=== PATIENT | female | born 1940 | race Caucasian/White ===

== ENCOUNTER 2019-12-16 22:13 | Emergency (ER) | payer MEDICARE, SELFPAY ==
[2019-12-16 22:15] VITALS: BP 209/83; PULSE 100; RESP 11; TEMP 37.6; O2SAT 97; BMI 28.5
--- NOTE | 2019-12-16 22:38 | EKG12_ITS ---
Test Reason : DYSRHYTHMIA Blood Pressure : / mmHG Vent. Rate : 093 BPM Atrial Rate : 093 BPM P-R Int : 152 ms QRS Dur : 102 ms QT Int : 396 ms P-R-T Axes : 074 043 029 degrees QTc Int : 492 ms Normal sinus rhythm Possible Inferior infarct , age undetermined Abnormal ECG Confirmed by LISETH QUINTERO, MATEO ([id number]), material expeditor ABIODUN HANSON ([id number]) on 12/20/2019 12:58:03 PM Referred By: MR Confirmed By:MATEO CHILDERS MD
--- NOTE | 2019-12-16 22:40 | ED.VIS.GEN ---
History of Present Illness Chief Complaint: Weakness Narrative: Patient presenting for evaluation secondary to generalized weakness. Patient reports that she felt well today, was seated in her chair and when she stood up earlier this evening she felt lightheaded and fell. She denies that she hit her head. She denied this that she had syncope or loss consciousness. She denies that there was any sort of preceding chest pain or palpitations. Patient states that she was weak enough that she was not able to get up off of the floor, and spent most of the evening crawling or scooting across the floor. Patient states that she had some mild pain in her bilateral hips. She denies any lateralizing weakness. She denies any recent infectious signs or symptoms such as fever cough nausea vomiting diarrhea dysuria hematuria abdominal pain or skin rashes. Patient does live alone. Review of systems otherwise negative. Past Medical History - Allergies and Home Meds Allergies/Adverse Reactions: Allergies No Known Allergies Allergy (Verified 12/16/19 22:14) Prior records reviewed: Yes Past Medical History: - - A. fib, hypertension Surgical History: - Lives: Alone Smoking Status: Never smoker Alcohol: None Drugs: None Review of Systems All systems negative except as indicated General: Reports: - - Generalized weakness Eyes: Denies: Visual changes - bilaterally, Diplopia ENT: Denies: Rhinorrhea, Sore throat Cardiovascular: Denies: Chest pain, Palpitations Respiratory: Denies: Dyspnea, Cough, Dyspnea on exertion Gastrointestinal: Denies: Abdominal pain, Nausea, Vomiting, Diarrhea, Melena, Hematochezia Genitourinary: Denies: Dysuria, Hematuria, Frequency Musculoskeletal: Denies: Back pain, Extremity Pain Skin: Denies: Rash, Wounds Neurological: Denies: Headache, Weakness, Numbness Physical Exam Vital Signs/Narrative: Vital Signs Temp Pulse Resp BP Pulse Ox 12/16/19 22:15 99.6 F H 100 11 L 209/83 H 97 Inital Vital Signs reviewed: Yes General: Well nourished, Well developed, No Acute Distress Head: Normocephalic, Atraumatic Eyes: Perrl, EOMI ENT: Moist mucous membranes, No rhinorrhea Neck: Supple, Nontender, - - Neck is nontender with no step-offs normal range of motion Cardiovascular: Regular rate, Regular rhythm, No murmurs, - - 2+ radial pulses. Occasional extrasystoles are noted. Respiratory: No distress, CTA bilaterally, Chest nontender Abdomen: Soft, Nontender, Nondistended, Normal bowel sounds Back: Nontender, Normal Inspection Extremities: Nontender, No edema, - - Pelvis is stable. Normal active and passive range of motion of the upper and lower extremities with no reproducible pain on palpation or movement. Skin: Normal color, No rash Neurological: Alert, Oriented x3, Cranial nerves II-XII grossly intact, Normal Strength, Normal Sensation Psychological: Normal affect, Normal Mood Diagnostic/Tx/Re-eval Clinical Impression(s) from Imaging Studies Chest X-Ray 12/16/19 22:58 IMPRESSION: No acute cardiopulmonary disease. Electronically Signed: Reinaldo Sheppard MD at 23:17 EDT , Service support , Laboratory Data 12/16/19 12/16/19 12/16/19 22:00 22:54 22:54 WBC 10.1 RBC 5.27 Hgb 14.8 Hct 45.4 MCV 86.1 MCH 28.1 MCHC 32.6 RDW Std Deviation 43.5 RDW Coeff of Desmond 13.7 Plt Count 209 MPV 10.5 Immature Gran % (Auto) 0.400 Neut % (Auto) 75.7 H Lymph % (Auto) 13.7 L [place] % (Auto) 8.9 Eos % (Auto) 0.6 Baso % (Auto) 0.7 Absolute Neuts (auto) 7.6 Absolute Lymphs (auto) 1.38 Nucleated RBC % 0 Sodium 141 Potassium 3.6 Chloride 104 Carbon Dioxide 30.0 Anion Gap 7 BUN 16 Creatinine 0.80 Estim Creat Clear Calc 54.26 Est GFR (MDRD) Af Amer 89 Est GFR (MDRD) Non-Af 74 BUN/Creatinine Ratio 20.0 Glucose 144 H Calcium 9.2 Troponin I < 0.015 Urine Color Yellow Urine Clarity Clear Urine pH 8.0 Ur Specific [place] 1.015 Urine Protein 100 H Urine Glucose (UA) Normal Urine Ketones Negative Urine Occult Blood 25 H Urine Nitrite Negative Urine Bilirubin Negative Urine Urobilinogen Normal Ur Leukocyte Esterase Negative Urine RBC 0-5 SEEN Urine WBC 0 SEEN Ur Squamous Epith Cells 0 SEEN Urine Bacteria 0 SEEN Urine Mucus 0 SEEN - EKG Initial EKG Interpretation: - - Sinus rhythm [address] segments normal T waves. Inferior Q waves are noted in lead III, no evidence of acute ischemia or arrhythmia. - Medical Decision Making Patient presented secondary to generalized weakness. She was noted to be hypertensive, states that she does not take her antihypertensive medications and really only has been taking her thyroid medicines. Work-up was obtained. EKG demonstrates no signs of ischemia. Chest x-ray per radiology review on my personal review is negative for acute pathology. CBC chemistry troponin urinalysis found to be unremarkable. Patient was ambulated in the emergency department, and while she was able to ambulate it was with a significant amount of assistance. Patient lives independently, does not have anyone that is able to stay with her, and the patient's son who is present states that he is not able to stay with her as he has to go back to work and is concerned for her safety and potential fall. I will discuss patient's case with the hospitalist to see about the possibility of placement for rehab versus coordination of home health versus permanent placement. After discussing with the hospitalist, we did determined that the patient unfortunately does not meet any sort of admission criteria. Social work consult horribly be placed to speak with the patient and the son tomorrow to help coordinate outpatient services. Patient will be sent home with a walker for ambulatory stability. Patient was discharged in stable condition. ED Disposition - Plan for ED Patient: Disposition: Acute Care Hospital [facility] Diagnosis: Generalized weakness, Hypertension Instructions: ED Weakness [facility] Referrals: Ponce Hatfield MD [Primary Care Provider] - As soon as possible
--- NOTE | 2019-12-16 22:43 | ED.RN ---
NO OLD EKGS IN MUSE
[2019-12-16 22:46] LABS: Bacteria 0 SEEN /hpf (None Seen); Mucous, Urine 0 SEEN /hpf (<or=2+); Squamous Epithelial Cells - UA 0 SEEN /hpf (5-10)
[2019-12-16 22:49] LABS: Color, Urine Yellow (Yellow); Glucose, Dipstick Normal (Normal); Ketone-Dipstick Negative (Negative); Leukocyte Esterase-Dipstick Negative /ul (Negative); Nitrite-Dipstick Negative (Negative); Occult Blood-Urine 25 /ul (Negative); Protein-Dipstick 100 mg/dl (Negative); Specific Gravity, Urine 1.015 (1.002-1.030); Urine Bilirubin Dipstick Negative (Negative); Urine Clarity Clear (Clear); Urine Urobilinogen Normal (Normal)
[2019-12-16] MEDS: 0.9% Normal Saline 1,000 ML 1000 ML IV (22:54)
[2019-12-16 22:56] LABS: Red Blood Cells-Urine 0-5 SEEN /hpf (0-5); White Blood Cells 0 SEEN /hpf (0-5)
--- NOTE | 2019-12-16 22:58 | RAD_ITS ---
STUDY: X-RAY CHEST REASON FOR EXAM: Female, 79 years old. Increased weakness. TECHNIQUE: AP portable chest. COMPARISON: None. FINDINGS: The lungs are clear and expanded. There is no demonstrated pleural abnormality. Normal size heart. Normal mediastinum and artur. Normal visualized pulmonary arteries. Normal visualized aortic arch and descending thoracic aorta. Degenerative changes of the thoracic spine. Degenerative changes right shoulder. There is no demonstrated abnormality of the visualized soft tissue structures of the upper abdomen. RAD/Chest 1 View (Portable) IMPRESSION: No acute cardiopulmonary disease. Electronically Signed: Reinaldo Sheppard MD at 23:17 EDT , Service support ,
[2019-12-16 23:00] LABS: Absolute Lymphocyte Count 1.38 X10^3/uL (0.83-4.51); Absolute Neutrophil Count 7.6 X10^3/uL (2.0-7.7); Basophil# 0.07 X10^3/uL; Basophil% 0.7 % (0-1); Eosinophil# 0.06 X10^3/uL; Eosinophils% 0.6 % (0-5); Hematocrit 45.4 % (37-47); Hemoglobin 14.8 g/dL (12.0-15.0); Lymphocyte # 1.38 X10^3/ul (4.0); Lymphocyte % 13.7 % (19-41); Mean Corp Hgb Conc 32.6 g/dL (32-36); Mean Corpuscular Hgb 28.1 pg (27.0-32.0); Mean Corpuscular Volume 86.1 fL (81-99); Mean Platelet Vol. 10.5 fl (6.2-12.0); Monocyte% 8.9 % (0-10); NRBC Flagged by Analyzer 0 % (0-5); Neutrophil # 7.64 X10^3/uL (2.7-7.7); Neutrophil % 75.7 % (47-70); Platelet Count 209 K/mm3 (150-450); RBC Distribution Width CV 13.7 % (11.6-14.6); RBC Distribution Width SD 43.5 fl (35.1-43.9); Red Blood Count 5.27 M/mm3 (4.2-5.4); White Blood Count 10.1 K/mm3 (4.4-11.0)
[2019-12-16 23:17] LABS: Anion Gap 7 (5-15); BUN 16 mg/dL (7-18); Calcium,Total 9.2 mg/dL (8.5-10.1); Chloride 104 mmol/L (98-107); EST Glomerular Filtration Rate 74 mL/min (>60); Est Glom Filt Rate - Afr Amer 89 mL/min (>60); Estimated Creatinine Clearance 54.26 ml/min; Glucose 144 mg/dL (74-106); Potassium 3.6 mmol/L (3.5-5.1); Sodium Level 141 mmol/L (136-145)
[2019-12-17 01:00] VITALS: BP 215/120; PULSE 100; RESP 18; O2SAT 98
--- NOTE | 2019-12-17 01:10 | ED.RN ---
LEFT MESSAGE WITH MARYSOL TO INFORM HIM THAT RX OF WALKER AT THE [facility] OR CAN BE FAXED TO A LOCATION OF HIS CHOICE.
--- NOTE | 2019-12-17 13:10 | CM.ED ---
Social Work Telephone call from patient son, Antelmo. Antelmo states to have had family stop by to mushroom picker walker for patient today at the emergency room and a walker was not present. This social work job titles reviewing patient chart. Patient was to be ordered a walker but it is not clear as to where from and how patient was going to obtain walker. Antelmo agreeable with this social work job titles making some phone calls and calling Antelmo back. Telephone call to Jaime Grimes. Jaime reports to have walker for patient at [facility]. Jaime states to have spoken with patient today about this but patient appeared confused. Telephone call to Antelmo. This social work job titles updating Antelmo on current location of walker. Antelmo to have family come and mushroom picker walker form [employer] today. Antelmo also inquiring about [facility] and community resources for patient. Patient currently lives alone and has been falling. Antelmo concerned with patient ability to continue to live alone. Patient does not have a medical alert. Antelmo is the HCPOA. This social work job titles educating Antelmo on [facility]/assisted living process, medical alerts, AAOA and private duty aides. Antelmo requesting for information to be mailed to Antelmo to follow up. This social work job titles put together the above mentioned resources and mailed them to Antelmo per request. Antelmo with no further questions. Caprice Daugherty MSW, KENISHA
== END 2019-12-17 01:05 | disposition short-term general hospital (02) ==
PROVIDERS: Emergency Provider Emergency Medicine; PCP Family Medicine
DX: R53.1 Weakness (principal); I10 Essential (primary) hypertension; R42 Dizziness and giddiness; M25.552 Pain in left hip; M25.551 Pain in right hip; I48.91 Unspecified atrial fibrillation; Z79.84 Long term (current) use of oral hypoglycemic drugs; Z79.82 Long term (current) use of aspirin; Z79.899 Other long term (current) drug therapy
CPT/HCPCS: 71045; 80048; 81001; 84484; 85025; 93005; 96360; 99285; J7030; A4216

== ENCOUNTER 2020-11-02 15:02 | Observation (INO) | payer MEDICARE, SELFPAY ==
[2020-11-02] VITALS (7 sets, daily range): BP systolic 105–134; BP diastolic 57–84; PULSE 77–88; RESP 14–22; TEMP 36.6–37.7; O2SAT 96–98; BMI 27.3; BMI 27.7
--- NOTE | 2020-11-02 17:00 | EKG12_ITS ---
Test Reason : WEAKNESS Blood Pressure : / mmHG Vent. Rate : 080 BPM Atrial Rate : 080 BPM P-R Int : 180 ms QRS Dur : 100 ms QT Int : 410 ms P-R-T Axes : -20 000 007 degrees QTc Int : 472 ms Normal sinus rhythm Inferior infarct , age undetermined Abnormal ECG Confirmed by XENA QUINTERO, ROBLES ([id number]), advertising editor ABIODUN HANSON ([id number]) on 11/04/2020 10:39:15 AM Referred By: PARAM Confirmed By:ROBLES MCCALLUM MD
--- NOTE | 2020-11-02 17:02 | EX.ED.DYSGE1 ---
HPI History of Present Illness Chief Complaint: Weakness Informant: patient and family Onset/Context/Timing Onset: Weeks Context: Gradual Onset Timing: Continuous Current Severity: Mild Maximum Severity: Moderate Narrative Narrative: 80-year-old female with progressive weakness for the last 3 weeks. History of diabetes hypothyroidism and A. fib. It has gotten to the point at home where she can even really get out of a chair. Family lives down the road from her and they are in her house helping her quite a bit. Today they took her to primary care physician's office due to the weakness was sent to the emergency department. Patient denies any nausea, vomiting, diarrhea. No fever or chills. No dysuria. No melena. No recent hospitalizations. Reportedly she is eating and drinking well. Prior similar symptoms: Yes Recent Illness/Hospitalization: No [facility] Medical History (Updated 11/02/20 @ 20:[address] Juarez Schneider MD) Afib GERD (gastroesophageal reflux disease) Hiatal hernia HTN (hypertension) Hyperlipidemia Hypokalemia Hypothyroidism Home Medications amlodipine 10 mg PO DAILY 07/13/16 [History Last Taken Unknown] levothyroxine 100 mcg PO DAILY 07/13/16 [History Last Taken Unknown] losartan-hydrochlorothiazide 1 tab PO DAILY 07/13/16 [History Last Taken Unknown] metformin 500 mg PO TIDCM 07/13/16 [History Last Taken 07/13/16 08:00] metoprolol tartrate 100 mg PO BID 07/13/16 [History Last Taken 07/13/16 08:00] hzdwnqrb-syy-ZH-lycopen-lutein 1 ea PO DAILY 07/13/16 [History Last Taken Unknown] omega-3 fatty acids 300 mg PO DAILY 07/13/16 [History Last Taken Unknown] simvastatin 5 mg PO QHS 07/13/16 [History Last Taken Unknown] aspirin 81 mg tablet,delayed release 81 mg PO BID tab 08/22/17 [History Last Taken Unknown] potassium chloride 20 mEq oral packet 20 meq PO QDAY 08/22/17 [History Last Taken Unknown] Allergy/AdvReac Type Severity Reaction Status Date / Time No Known Allergies Allergy Verified 11/02/20 15:04 Surgical History History of esophagogastroduodenoscopy (EGD) Social History Smoking Status: Never smoker alcohol intake: never ROS ROS ED ROS Narrative Denies recent illness other than just generalized weakness. Review of Systems ROS Unobtainable: Denies due to encephalopathy Constitutional Constitutional ED: Denies chills or fever(s) Eyes Eyes: Denies change in vision ENT ENT ED: Denies ear pain or sore throat Cardiovascular Cardiovascular: Denies chest pain Respiratory/Chest Respiratory/Chest: Denies cough or dyspnea Gastrointestinal Gastrointestinal: Denies abdominal pain, diarrhea, nausea or vomiting Genitourinary Genitourinary ED: Denies dysuria or hematuria Musculoskeletal Musculoskeletal: Denies arthralgias or myalgias Integumentary Denies abscess or rash Neurologic Neurologic: Denies headache(s) Psychiatric Psychiatric: Denies depression Endocrine Endocrinology: Denies polyuria Allergic/Immunologic Allergic/Immunologic ED: Denies urticaria EXAM Physical Exam Narrative Exam Narrative: Elderly female no acute distress. Vital signs stable and afebrile. Blood pressure 109/70. Pulse ox 97% on room air. She does have a low-grade temperature nine 9.8. She does not look septic or toxic. H EENT exam unremarkable. Neck nontender no lymphadenopathy. Lungs clear to auscultation bilaterally. Heart regular rate 80s. Abdomen soft nontender normal bowel sounds no peritoneal signs. Patient is moving all four extremities. 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 4-5 strength in her legs. Back nontender. Neurologically she is awake alert with no focal motor deficits. Const Vital Signs: 11/02/20 15:04 11/02/20 16:54 11/02/20 16:55 Temperature 99.8 F H Temperature Source Temporal Pulse Rate 88 80 Respiratory Rate 14 22 H Respiratory Effort Normal Non-Labored Respiratory Pattern Normal Blood Pressure 109/70 105/84 H Blood Pressure Mean 83 91 Pulse Ox 97 97 Oxygen Delivery Method Room Air Room Air Positive well nourished and well developed General Appearance ED: well developed and NAD HEENT Reports moist mucous membranes Negative for trauma or tenderness Eyes PERRL and EOMs intact bilaterally Neck no lymphadenopathy, supple and no JVD General: Negative for tenderness Chest Wall inspection of chest normal and palpation of chest normal Resp normal respiratory effort and clear to auscultation bilaterally Cardio regular rate and no murmurs GI normal to inspection, nondistended, normoactive bowel sounds, non-tender and non-distended Palpation: soft Back/Spine no CVA tenderness Extremity normal to inspection General Extremety ED: Negative for edema or tenderness General Extremity: Negative for edema Neuro oriented x3 and CN's II-XII intact bilaterally Sensorium / Orientation: alert; Negative for lethargic or stuporous Motor Exam: strength abnormal Psych mental status grossly normal Skin no rashes or lesions noted and no wounds MDM MDM MDM Narrative Medical decision making narrative: Elderly female generalized weakness. Screening labs being obtained to be treated with IV fluids she will need to be admitted because she can even get around her house. Repeat exam patient doing well at 8 PM spoke to the hospitalist and she will be admitted. Lab Data Attestation: I reviewed the patient's lab results. Lab results narrative: CBC showed an elevated white count 13.4. Nonlabored 13. No bands. Urinalysis negative no signs of infection. No red or white cells no bacteria or nitrates. Verbal chest x-ray unremarkable interpreted by myself. Electrolytes unremarkable. Troponin normal. TSH is low. Labs: Laboratory Results - last 24 hr 11/02/20 11/02/20 11/02/20 16:50 16:50 18:10 WBC 13.4 H RBC 4.67 Hgb 13.3 Hct 40.5 MCV 86.7 MCH 28.5 MCHC 32.8 RDW Std Deviation 44.2 H RDW Coeff of Desmond 13.8 Plt Count 232 MPV 10.5 Immature Gran % (Auto) 0.500 Neut % (Auto) 80.3 H Lymph % (Auto) 9.2 L [place] % (Auto) 9.5 Eos % (Auto) 0.2 Baso % (Auto) 0.3 Absolute Neuts (auto) 10.7 H Absolute Lymphs (auto) 1.23 Nucleated RBC % 0 Sodium 132 L Potassium 4.0 Chloride 99 Carbon Dioxide 24.0 Anion Gap 9 BUN 19 H Creatinine 0.90 Estim Creat Clear Calc 51.13 Est GFR (MDRD) Af Amer 78 Est GFR (MDRD) Non-Af 64 BUN/Creatinine Ratio 21.2 H Glucose 181 H Calcium 9.2 Total Bilirubin 1.20 H AST 17 ALT 17 Alkaline Phosphatase 91 Troponin I High Sens 3.5 Total Protein 7.5 Albumin 3.2 Globulin 4.3 H Albumin/Globulin Ratio 0.7 L TSH 0.25 L Urine Color Yellow Urine Clarity Clear Urine pH 6.5 Ur Specific [place] 1.015 Urine Protein 15 H Urine Glucose (UA) Normal Urine Ketones Negative Urine Occult Blood Negative Urine Nitrite Negative Urine Bilirubin Negative Urine Urobilinogen Normal Ur Leukocyte Esterase Negative Urine RBC 0 SEEN Urine WBC 0 SEEN Ur Squamous Epith Cells 0 SEEN Urine Bacteria 0 SEEN Urine Mucus 0 SEEN Radiography Chest X-Ray - ED: 1 View, Read by ED Physician, Heart, Lungs, Mediastinum, Bony Structures, No Acute Disease and Chronic Changes Diagnostic Testing: Portable chest x-ray no acute abnormality interpreted by myself. Rhythm Strip Rhythm Strip: Sinus Rhythm Rate: 80 Ectopy: None EKG Initial EKG: Attestation: I personally reviewed and interpreted this EKG as follows: Interpretation: Sinus Rhythm and No Acute Injury Pattern Comments: Normal sinus rhythm rate of 80 no acute signs of ST elevation or depression. Possibly an old inferior [place]. Discharge Plan Triage Chief Complaint: Weakness ED Provider: Juarez Schneider Dx/Rx/DC Orders Clinical Impression: Generalized weakness, Adult failure to thrive, Leukocytosis Prescriptions: No Action potassium chloride [Klor-Con] 20 mEq packet 20 meq PO QDAY RF: 0 metformin 500 MG tablet 500 mg PO TIDCM RF: 0 metoprolol tartrate 100 MG tablet 100 mg PO BID RF: 0 levothyroxine 100 MCG tablet 100 mcg PO DAILY RF: 0 losartan-hydrochlorothiazide 1 TAB tablet 1 tab PO DAILY RF: 0 amlodipine 10 MG tablet 10 mg PO DAILY RF: 0 simvastatin 5 MG tablet 5 mg PO QHS RF: 0 rwmsabcc-dgh-MV-lycopen-lutein 1 EACH tablet 1 ea PO DAILY RF: 0 omega-3 fatty acids 300 MG capsule 300 mg PO DAILY RF: 0 aspirin 81 mg tablet,delayed release (DR/EC) 81 mg PO BID RF: 0 Primary Care Provider: Ponce Hatfield Referrals: Ponce Hatfield MD [Primary Care Provider] - Disposition Disposition: Acute Care Hospital [facility]
--- NOTE | 2020-11-02 17:18 | RAD_ITS ---
STUDY: X-RAY CHEST REASON FOR EXAM: Female, 80 years old. weakness TECHNIQUE: Single AP portable view of the chest. COMPARISON: 12/16/2019. FINDINGS: The lungs are clear and expanded. There is no demonstrated pleural abnormality. Normal size heart. Normal mediastinum and artur. Normal visualized pulmonary arteries. Normal visualized aortic arch and descending thoracic aorta. There are diffuse degenerative changes of the visualized thoracic spine. There is degenerative osteoarthritis of the bilateral shoulders. There is no demonstrated abnormality of the visualized soft tissue structures of the upper abdomen. RAD/Chest 1 View (Portable) IMPRESSION: No definite acute or significant abnormality seen. Electronically Signed: Real Barrientos MD at 17:40 EDT , Service support ,
[2020-11-02] MEDS: 0.9% Normal Saline 1,000 ML 1000 ML IV (17:48)
[2020-11-02 19:14] LABS: Absolute Lymphocyte Count 1.23 X10^3/uL (0.83-4.51); Absolute Neutrophil Count 10.7 X10^3/uL (2.0-7.7); Basophil# 0.04 X10^3/uL; Basophil% 0.3 % (0-1); Eosinophil# 0.03 X10^3/uL; Eosinophils% 0.2 % (0-5); Hematocrit 40.5 % (37-47); Hemoglobin 13.3 g/dL (12.0-15.0); Lymphocyte # 1.23 X10^3/ul (0.83-4.51); Lymphocyte % 9.2 % (19-41); Mean Corp Hgb Conc 32.8 g/dL (32-36); Mean Corpuscular Hgb 28.5 pg (27.0-32.0); Mean Corpuscular Volume 86.7 fL (81-99); Mean Platelet Vol. 10.5 fl (6.2-12.0); Monocyte# 1.27 X10^3/uL; Monocyte% 9.5 % (0-10); NRBC Flagged by Analyzer 0 % (0-5); Neutrophil # 10.73 X10^3/uL (2.7-7.7); Neutrophil % 80.3 % (47-70); Platelet Count 232 K/mm3 (150-450); RBC Distribution Width CV 13.8 % (11.6-14.6); RBC Distribution Width SD 44.2 fl (35.1-43.9); Red Blood Count 4.67 M/mm3 (4.2-5.4); White Blood Count 13.4 K/mm3 (4.4-11.0)
[2020-11-02 19:31] LABS: Bacteria 0 SEEN /hpf (None Seen); Mucous, Urine 0 SEEN /hpf (<or=2+); Red Blood Cells-Urine 0 SEEN /hpf (0-5); Squamous Epithelial Cells - UA 0 SEEN /hpf (5-10); White Blood Cells 0 SEEN /hpf (0-5)
[2020-11-02 19:33] LABS: Color, Urine Yellow (Yellow); Glucose, Dipstick Normal (Normal); Ketone-Dipstick Negative (Negative); Leukocyte Esterase-Dipstick Negative /ul (Negative); Nitrite-Dipstick Negative (Negative); Occult Blood-Urine Negative /ul (Negative); Protein-Dipstick 15 mg/dl (Negative); Specific Gravity, Urine 1.015 (1.002-1.030); Urine Bilirubin Dipstick Negative (Negative); Urine Clarity Clear (Clear); Urine Urobilinogen Normal (Normal); Urine pH 6.5 (5.0 - 8.0)
--- NOTE | 2020-11-02 20:05 | HP.PCM.HOS_ITS ---
HPI - General General Date of Admission: 11/02/20 Date of Service: 11/02/20 Chief Complaint: Weakness, debility, decline HPI Narrative The patient is a 80 y/o F w/ PMHx: PAF, HTN, HLD, Hypothyroidism, GERD w/ hiatal hernia, Diabetes mellitus type II who presents to the [facility] ED on 11/02/20 with history of progressive decline over the last 3 weeks, unable to even walk or get up out of her chair. Family is unable to care for the patient therefore prompted to bring her to the ED for evaluation per PCP recommendation. Patient denies any recent fever, chills, nausea, emesis, abdominal pain, dysuria, chest pain, dyspnea, cough. Work-up in the ED included T 99.8, heart rate 88, BP 105/84, respiratory rate 22, and 97% on room air, CBC with WBC 13.4, hemoglobin 13.3, platelet 232 with left shift, CMP w/ Na 132, K 4, AG 9, glucose 181, BUN /Cr 19/0.9, hepatic profile unremarkable, TSH 0.25, HS Trop 3, urinalysis not severe appearing, EKG with SR without acute evidence of ischemia with prior changes, CXR without acute evidence of ischemia. In the ED patient administered normal saline. [facility] Medical History (Updated 11/02/20 @ 20:[address] Juarez Schneider MD) Afib GERD (gastroesophageal reflux disease) Hiatal hernia HTN (hypertension) Hyperlipidemia Hypokalemia Hypothyroidism Home Medications amlodipine 10 mg PO DAILY 07/13/16 [History Last Taken Unknown] levothyroxine 100 mcg PO DAILY 07/13/16 [History Last Taken Unknown] losartan-hydrochlorothiazide 1 tab PO DAILY 07/13/16 [History Last Taken Unknown] metformin 500 mg PO TIDCM 07/13/16 [History Last Taken 07/13/16 08:00] metoprolol tartrate 100 mg PO BID 07/13/16 [History Last Taken 07/13/16 08:00] mfudrfiz-axf-BT-lycopen-lutein 1 ea PO DAILY 07/13/16 [History Last Taken Unknown] omega-3 fatty acids 300 mg PO DAILY 07/13/16 [History Last Taken Unknown] simvastatin 5 mg PO QHS 07/13/16 [History Last Taken Unknown] aspirin 81 mg tablet,delayed release 81 mg PO BID tab 08/22/17 [History Last Taken Unknown] potassium chloride 20 mEq oral packet 20 meq PO QDAY 08/22/17 [History Last Taken Unknown] Allergy/AdvReac Type Severity Reaction Status Date / Time No Known Allergies Allergy Verified 11/02/20 15:04 Family History (Updated 11/02/20 @ 20:[address] Sadie Gary MD) Mother Hypertension Father Diabetes Surgical History History of esophagogastroduodenoscopy (EGD) Social History (Updated 11/02/20 @ 20:[address] Sadie Gary MD) household members: other details: Lives with her son. Smoking Status: Never smoker alcohol intake: never substance use type: does not use ROS ROS Narrative Admission Review of Systems: CONSTITUTIONAL: No weight loss, fever, chills, + weakness or fatigue. HEENT: Eyes: No visual loss, blurred vision, double vision or yellow sclerae. Ears, Nose, Throat: No hearing loss, sneezing, congestion, runny nose or sore throat. SKIN: No rash or itching, lesions, wounds. CARDIOVASCULAR: No chest pain, chest pressure or chest discomfort, palpitations, edema, orthopnea, syncopal events. RESPIRATORY: No shortness of breath, cough or sputum, wheezing, hemoptysis. GASTROINTESTINAL: No anorexia, nausea, vomiting or diarrhea, abdominal pain, melena, BRBPR. GENITOURINARY: No dysuria, frequency, urgency or retention. NEUROLOGICAL: + Generalized weakness and debility. No headache, dizziness, syncope, paralysis, ataxia, numbness or tingling in the extremities, focal weakness, change in bowel or bladder control, seizure. MUSCULOSKELETAL: + muscle, back pain, joint pain or stiffness. HEMATOLOGIC: No anemia, bleeding or bruising. LYMPHATICS: No enlarged nodes. No history of splenectomy. PSYCHIATRIC: No history of depression or anxiety. ENDOCRINOLOGIC: No reports of sweating, cold or heat intolerance. No polyuria or polydipsia. ALLERGIES: No history of asthma, hives, eczema or rhinitis. Vital Signs Vital Signs Vital Signs: 11/02/20 15:04 11/02/20 16:54 11/02/20 16:55 Temperature 99.8 F H Temperature Source Temporal Pulse Rate 88 80 Respiratory Rate 14 22 H Respiratory Effort Normal Non-Labored Respiratory Pattern Normal Blood Pressure 109/70 105/84 H Blood Pressure Mean 83 91 Pulse Ox 97 97 Oxygen Delivery Method Room Air Room Air Weight Weight: 180 lb Body Mass Index (BMI) 27.3 Physical Exam Narrative Physical Examination: General: Awake, alert, oriented x [address], month, recent events other do suspect may be some underlying cognitive impairment just based on discussions and answers given, remains cooperative, seated upright in ED bed, no acute distress, eating. Skin: Normal color, normal turgor, no icterus, no cyanosis. HEENT: AT/NC, EOMI, PERRLA, MMM, no carotid bruits or JVD noted. Lungs: Mildly diminished, greater bases, appropriate effort, no rales, ronchi or wheezing. Heart: Regular rate and rhythm; no gallop, rub audible. Abdomen: Soft, NTTP, ND, mildly hyperactive BS, no HSM. Extremities: No cyanosis, no clubbing, mild bilateral ankle edema, nonpitting. Neurological: Patient awake, alert, oriented as noted, cognitive function do suspect baseline intact, do suspect may be some underlying cognitive impairment; pupils equally reactive to light and accommodation, cranial nerves II-XII grossly normal, moving all 4 extremities, no focal deficits, strength moderately globally decreased. Psychiatric: Affect appears normal, no acute evidence of depressive or anxiety feelings. Results Lab / Micro Data Result Diagrams: 11/02/20 16:50 11/02/20 16:50 Labs: Laboratory Results - last 24 hr 11/02/20 16:50: WBC 13.4 H, RBC 4.67, Hgb 13.3, Hct 40.5, MCV 86.7, MCH 28.5, MCHC 32.8, RDW Std Deviation 44.2 H, RDW Coeff of Desmond 13.8, Plt Count 232, MPV 10.5, Immature Gran % (Auto) 0.500, Neut % (Auto) 80.3 H, Lymph % (Auto) 9.2 L, [place] % (Auto) 9.5, Eos % (Auto) 0.2, Baso % (Auto) 0.3, Absolute Neuts (auto) 10.7 H, Absolute Lymphs (auto) 1.23, Nucleated RBC % 0 11/02/20 18:10: Urine Color Yellow, Urine Clarity Clear, Urine pH 6.5, Ur Specific [place] 1.015, Urine Protein 15 H, Urine Glucose (UA) Normal, Urine Ketones Negative, Urine Occult Blood Negative, Urine Nitrite Negative, Urine Bilirubin Negative, Urine Urobilinogen Normal, Ur Leukocyte Esterase Negative, Urine RBC 0 SEEN, Urine WBC 0 SEEN, Ur Squamous Epith Cells 0 SEEN, Urine Bacteria 0 SEEN, Urine Mucus 0 SEEN Rhythm Strip Rhythm Strip: Sinus Rhythm Rate: 80 Ectopy: None Assessment & Plan Assessment/Plan (1) Adult failure to thrive: PLAN: The patient is a 80 y/o F w/ PMHx: PAF, HTN, HLD, Hypothyroidism, GERD w/ hiatal hernia, Diabetes mellitus type II who presents to the [facility] ED on 11/02/20 with history of progressive decline over the last 3 weeks, unable to even walk or get up out of her chair. Family is unable to care for the patient therefore prompted to bring her to the ED for evaluation per PCP recommendation. 1. Failure to thrive in adult, progressive decline: Patient with significant decline over the last several weeks, unable to care for self at home, mild WC elevation with left shift but no obvious source, will admit to medical surgical floor, maintain on fall precautions, judiciously hydrate, will obtain PT/OT/case management consultations for discharge planning as at this point skilled facility would be necessary. May consider repeating CXR following judicious hydration if concern for developing PNA pending re-evaluation. 2. Hypothyroidism with abnormal TSH: TSH 0.25, will obtain free T4 level and in the interim continue home Synthroid regimen but alter as needed especially given presentation with decline with significant weakness. 3. Hyponatremia, mild, chronic: Patient with admission sodium 133, likely chronic component given age and usage of diuretic, judiciously hydrating, trend CMP in AM. 4. PAF: We will continue patient home metoprolol, aspirin regimen. 5. Hypertension: Continue home regimen including amlodipine, losartan, hydrochlorothiazide, metoprolol with hold parameters, PRN hydralazine. 6. Hyperlipidemia: Continue home statin regimen. 7. Diabetes mellitus type II: Hold oral home regimen, maintain on ADA diet, accu checks w/ ISS. 8. GERD with history of hiatal hernia: We will maintain on famotidine. 9. DVT prophylaxis: SCDs, Lovenox. 10. CODE status: Patient TONIO is her son with whom she lives and living will is she believes in place. Discussed CODE status at length including difference between FULL code, DNR-CCA and DNR-CC status. Following discussions about the differences in these status, requested Full Code status. Advanced Care Planning Face to Face Time: 16 minutes. Charges/Coding Visit Charges OBSV E&M: 81112 Initial observation care L2 Procedures Hospitalists Procedures: 85130 Advncd Care Plan 30 Min
[2020-11-02 20:09] LABS: ALB/GLOB Ratio 0.7 RATIO (0.9-2.4); AST(SGOT) 17 U/L (15-37); Alanine Aminotransfer ALT/SGPT 17 U/L (13-56); Albumin, Serum 3.2 g/dL (3.2-5.0); Alkaline Phosphatase 91 U/L (45-117); Anion Gap 9 (5-15); BUN 19 mg/dL (7-18); BUN/Creat Ratio 21.2 RATIO (10-20); Calcium,Total 9.2 mg/dL (8.5-10.1); Chloride 99 mmol/L (98-107); EST Glomerular Filtration Rate 64 mL/min (>60); Est Glom Filt Rate - Afr Amer 78 mL/min (>60); Estimated Creatinine Clearance 51.13 ml/min; Globulin 4.3 g/dL (2.2-4.2); Glucose 181 mg/dL (74-106); Protein, Total 7.5 g/dL (6.4-8.2); Sodium Level 132 mmol/L (136-145); Thyroid Stim Hormone (TSH) 0.25 uIU/mL (0.358-3.74); Troponin-I HS 3.5 pg/mL (3.0-53.7)
--- NOTE | 2020-11-02 20:57 | ED.RN ---
spoke to son Antelmo to inform of admission room number.
[2020-11-02 21:13] LABS: Magnesium 2.3 mg/dL (1.6-2.6)
[2020-11-02] MEDS: 0.9% Normal Saline 1,000 ML 100 ML IV (22:19)
[2020-11-02] MEDS: Atorvastatin Calcium 10 MG Tablet 5 MG PO (22:44)
[2020-11-02] MEDS: Famotidine 20 MG Tablet PO (22:45)
[2020-11-02] MEDS: Metoprolol Tartrate 100 MG Tablet PO (22:45)
[2020-11-02 22:50] LABS: Bedside Glucose 189 mg/dL (70-110)
[2020-11-03] VITALS (7 sets, daily range): BP systolic 113–146; BP diastolic 51–78; PULSE 69–88; RESP 17–18; TEMP 36.6–36.8; O2SAT 96–99
[2020-11-03] MEDS: Acetaminophen 325 MG Tablet 650 MG PO ×2 (02:03→09:24)
[2020-11-03 05:54] LABS: Absolute Lymphocyte Count 2.27 X10^3/uL (0.83-4.51); Absolute Neutrophil Count 3.9 X10^3/uL (2.0-7.7); Basophil# 0.06 X10^3/uL; Basophil% 0.8 % (0-1); Eosinophils% 2.7 % (0-5); Hematocrit 37.1 % (37-47); Lymphocyte # 2.27 X10^3/ul (0.83-4.51); Lymphocyte % 30.6 % (19-41); Mean Corp Hgb Conc 32.3 g/dL (32-36); Mean Corpuscular Hgb 27.8 pg (27.0-32.0); Mean Corpuscular Volume 86.1 fL (81-99); Mean Platelet Vol. 9.8 fl (6.2-12.0); Monocyte# 0.96 X10^3/uL; NRBC Flagged by Analyzer 0 % (0-5); Neutrophil % 52.6 % (47-70); Platelet Count 220 K/mm3 (150-450); RBC Distribution Width CV 13.7 % (11.6-14.6); RBC Distribution Width SD 43.3 fl (35.1-43.9); Red Blood Count 4.31 M/mm3 (4.2-5.4); White Blood Count 7.4 K/mm3 (4.4-11.0)
[2020-11-03 06:25] LABS: BUN 15 mg/dL (7-18); BUN/Creat Ratio 25.8 RATIO (10-20); Creatinine, Serum 0.58 mg/dL (0.55-1.02); EST Glomerular Filtration Rate 106 mL/min (>60); Est Glom Filt Rate - Afr Amer 128 mL/min (>60); Estimated Creatinine Clearance 46.02 ml/min; Glucose 115 mg/dL (74-106)
[2020-11-03 06:26] LABS: ALB/GLOB Ratio 0.8 RATIO (0.9-2.4); AST(SGOT) 17 U/L (15-37); Alanine Aminotransfer ALT/SGPT 16 U/L (13-56); Alkaline Phosphatase 92 U/L (45-117); Anion Gap 7 (5-15); Calcium,Total 9.2 mg/dL (8.5-10.1); Chloride 104 mmol/L (98-107); Potassium 3.2 mmol/L (3.5-5.1); Sodium Level 137 mmol/L (136-145); T4 Free Direct 1.32 ng/dL (0.76-1.46)
[2020-11-03] MEDS: Levothyroxine 100 MCG Tablet PO (06:26)
[2020-11-03 06:41] LABS: Bedside Glucose 109 mg/dL (70-110)
[2020-11-03] MEDS: 0.9% Normal Saline 1,000 ML 100 ML IV ×2 (07:25→17:41)
[2020-11-03] MEDS: Metoprolol Tartrate 100 MG Tablet PO ×2 (09:16→22:18)
[2020-11-03] MEDS: Losartan Potassium 100 MG Tablet PO (09:16)
[2020-11-03] MEDS: hydroCHLOROthiazide 25 MG Tablet PO (09:16)
[2020-11-03] MEDS: Famotidine 20 MG Tablet PO ×2 (09:16→22:17)
[2020-11-03] MEDS: amLODIPine 10 MG Tablet PO (09:16)
[2020-11-03] MEDS: Potassium Chloride Oral Tablet 20 MEQ PO (09:16)
[2020-11-03] MEDS: Aspirin E.C. 81 MG Tablet PO ×2 (09:17→17:40)
[2020-11-03] MEDS: Enoxaparin 40 MG/0.4 ML Syringe SC (09:17)
[2020-11-03] MEDS: Glucerna Shake 120 ML LIQUID PO ×3 (09:20→17:39)
--- NOTE | 2020-11-03 12:52 | CASEMGMT ---
TIA met with patient. Introduced self and role at [facility]. SW asked patient about her discharge plan. She mentioned [place]. SW told her that is private pay. She then remembered that her son told her it was too much money. She seemed unsure of what the plan was and she was open to SW calling her son. TIA called patient's son and left him a voice mail requesting a return call. Yancy DE
[2020-11-03 13:21] LABS: Bedside Glucose 123 mg/dL (70-110)
--- NOTE | 2020-11-03 14:31 | CASEMGMT ---
SW has not heard back from patient's son. SW provided a list of (SNF, HH, LTCH, IRF) providers including quality and resource use data and consistent with the patient?s preferred geographic region, medical needs, and insurance network. SW also highlighted places that were in network with her insurance. SW left a note on the papers asking that they pick 2-3 places and SW will call the facilities. Yancy Reeder ASSOCIATE SOFTWARE ENGINEERJose [place]
--- NOTE | 2020-11-03 14:42 | CASEMGMT ---
Call to son, Antelmo, and per Antelmo, pt does have dementia. VILLAVICENCIO form explained over the phone, son voices understanding and gives verbal ok for signature. Original to chart and copy to pt's folder. Per son, they have been looking at facilities for pt and are agreeable to SNF. Son updated on SNF process, voices understanding and states their current preference is [facility] and they would like referral sent there. Rom WEBER aware, voices understanding. Ashley RN CM
--- NOTE | 2020-11-03 14:48 | CASEMGMT ---
RN VALERIA spoke with patient's son. Their first choice is [facility]. SW faxed referral to [facility]. SW also called letting Faye know a new referral was faxed. Plan: [facility] pending their acceptance and insurance authorization. Yancy DE
--- NOTE | 2020-11-03 14:50 | CHAPLAIN ---
Type of Pastoral Visit _x__ Initial Visit ___ Follow-up Visit ___ On-call Visit ___ General Patient Visit ___ Spiritual Assessment ___ Family Conference ___ Bereavement ___ Rapid Response ___ Code Blue ___ Other (describe below) Pastoral Care Referral From _x__ Patient ___ Family ___ Nurse ___ Physician ___ Sales Executive ___ Brass Bobbin Winder ___ Other (describe below) Sacrament/Intervention _x__ Active listening ___ Anointing ___ Latter-Day ___ Bereavement ___ Communion ___ Kinsey exploration ___ ___ Life review ___ Prayer ___ Reconciliation ___ Sacrament of Sick ___ Supportive presence ___ Wedding ___ Other (describe below) Pastoral Comments patient answers questions but does not engage in conversation and does not focus on the visit but rather on her food and on TV; pt needed to be instructed on how to call for assistance and how to use the remote for TV; pt wanted to go to the bathroom; an aide was called and architect notified
--- NOTE | 2020-11-03 14:54 | PN.HOSP_ITS ---
Subjective Subjective Patient seen and examined. She was admitted with a complaint of progressively worsening weakness and debility. She complains of weakness today, and also left knee pain which is chronic. Review of systems is otherwise negative. Objective Data Objective Data Vital Signs: Vital Signs Temp Pulse Resp BP Pulse Ox 97.8 F 88 18 146/69 H 97 11/03/20 09:05 11/03/20 09:16 11/03/20 09:05 11/03/20 09:05 11/03/20 09:05 Oxygen Delivery Method Room Air Weight: 182 lb 8.684 oz Body Mass Index (BMI) 27.7 Intake & Output: Intake and Output for Last 24 Hours 11/01/20 11/02/20 11/03/20 23:59 23:59 23:59 Intake Total 1316.67 / 1316.67 963.33 / 963.33 Output Total 250 / 250 400 / 400 Balance 1066.67 / 1066.67 563.33 / 563.33 Medical Nutrition Assessment Dietitian: Nutrition Therapy Diagnosis Start: 11/03/20 10:46 Freq: Status: Active Protocol: Document 11/03/20 13:53 RMA (Rec: 11/03/20 13:54 RMA [id number]) Nutrition Malnutrition Evidence of Malnutrition Exists No Clinical Problem Altered Nutrient-Related Laboratory Values Etiology related to endocrine dysfunction/DMII Signs/Symptoms as evidenced by fluctuating blood glucose levels 115, 123, 109, 189 Status Active Problem Recommendation Dietitian Recommendations/Changes Will change diet to Cardiac/ Carbohydrate-Controlled. Will continue 120ml glucerna shake TID w/ medpass as PO established; d/c on follow-up if PO and wt remain adequate. Lab / Micro Data Result Diagrams: 11/03/20 05:39 11/03/20 05:39 Labs: Laboratory Results - last 24 hr 11/02/20 16:50: WBC 13.4 H, RBC 4.67, Hgb 13.3, Hct 40.5, MCV 86.7, MCH 28.5, MCHC 32.8, RDW Std Deviation 44.2 H, RDW Coeff of Desmond 13.8, Plt Count 232, MPV 10.5, Immature Gran % (Auto) 0.500, Neut % (Auto) 80.3 H, Lymph % (Auto) 9.2 L, [place] % (Auto) 9.5, Eos % (Auto) 0.2, Baso % (Auto) 0.3, Absolute Neuts (auto) 10.7 H, Absolute Lymphs (auto) 1.23, Nucleated RBC % 0 11/02/20 16:50: Sodium 132 L, Potassium 4.0, Chloride 99, Carbon Dioxide 24.0, Anion Gap 9, BUN 19 H, Creatinine 0.90, Estim Creat Clear Calc 51.13, Est GFR (MDRD) Af Amer 78, Est GFR (MDRD) Non-Af 64, BUN/Creatinine Ratio 21.2 H, Glucose 181 H, Calcium 9.2, Total Bilirubin 1.20 H, AST 17, ALT 17, Alkaline Phosphatase 91, Troponin I High Sens 3.5, Total Protein 7.5, Albumin 3.2, Globulin 4.3 H, Albumin/Globulin Ratio 0.7 L, TSH 0.25 L 11/02/20 18:10: Urine Color Yellow, Urine Clarity Clear, Urine pH 6.5, Ur Specific [place] 1.015, Urine Protein 15 H, Urine Glucose (UA) Normal, Urine Ketones Negative, Urine Occult Blood Negative, Urine Nitrite Negative, Urine Bilirubin Negative, Urine Urobilinogen Normal, Ur Leukocyte Esterase Negative, Urine RBC 0 SEEN, Urine WBC 0 SEEN, Ur Squamous Epith Cells 0 SEEN, Urine Bacteria 0 SEEN, Urine Mucus 0 SEEN 11/02/20 20:40: Magnesium 2.3 11/02/20 22:39: POC Glucose 189 H 11/03/20 05:39: WBC 7.4, RBC 4.31, Hgb 12.0, Hct 37.1, MCV 86.1, MCH 27.8, MCHC 32.3, RDW Std Deviation 43.3, RDW Coeff of Desmond 13.7, Plt Count 220, MPV 9.8, Immature Gran % (Auto) 0.300, Neut % (Auto) 52.6, Lymph % (Auto) 30.6, [place] % (Auto) 13.0 H, Eos % (Auto) 2.7, Baso % (Auto) 0.8, Absolute Neuts (auto) 3.9, Absolute Lymphs (auto) 2.27, Nucleated RBC % 0 11/03/20 05:39: Sodium 137, Potassium 3.2 L, Chloride 104, Carbon Dioxide 26.0, Anion Gap 7, BUN 15, Creatinine 0.58, Estim Creat Clear Calc 46.02, Est GFR (MDRD) Af Amer 128, Est GFR (MDRD) Non-Af 106, BUN/Creatinine Ratio 25.8 H, Glu cose 115 H, Calcium 9.2, Total Bilirubin 0.90, AST 17, ALT 16, Alkaline Phosphatase 92, Total Protein 7.0, Albumin 3.0 L, Globulin 4.0, Albumin/Globulin Ratio 0.8 L, Free T4 1.32 11/03/20 06:31: POC Glucose 109 11/03/20 13:13: POC Glucose 123 H Rhythm Strip Rhythm Strip: Sinus Rhythm Rate: 80 Ectopy: None Physical Exam Const alert, oriented x3 and no apparent distress Exam Limitations: no limitations Nutritional Appearance: obese HEENT head/scalp atraumatic and moist oral mucous membranes Head and Scalp: normocephalic Eyes PERRL, EOMs intact bilaterally and conjunctivae normal Neck no lymphadenopathy and supple Resp normal respiratory effort, no retractions, no use of accessory muscles and clear to auscultation bilaterally Cardio regular rate, regular rhythm, S1 normal heart sound, S2 normal heart sound and no murmurs GI normal to inspection, nondistended, normoactive bowel sounds, soft to palpation, non-tender and non-distended Extremity normal to inspection Extremity Narrative: mild swelling of left knee, minimal tenderness, full range of motion, no calf tenderness or swelling Peripheral Pulses: Yes pulses 2+ throughout Skin no rashes or lesions noted Neuro oriented x3 Sensorium / Orientation: awake and alert Psych affect normal Assessment & Plan Assessment/Plan (1) Adult failure to thrive: (2) Generalized weakness: PLAN: #Debility with failure to thrive * PT/OT on board. Fall precautions * continue gentle hydration with IVF until patient is able to eat and drink well * case management on board for placement as needed * #Hypothyroidism * TSH is mildly low, but free T4 iw WNL * on synthroid. will continue * #Hypokalemia: K is 3.2. will replace and trend. #Hyponatremia: resolved #paroxysmal afib: on metoprolol and aspirin #Hyperlipidemia: on statin #Hypertension: On amlodipine, losartan, hydrochlorothiazide and metoprolol. IV hydralazine as needed. #Type 2 diabetes mellitus: On insulin sliding scale. Accu-Cheks AC at bedtime. #GERD with history of hiatal hernia: Stable. On famotidine. DVT prophylaxis: Lovenox Disposition: awaiting placement. Charges/Coding Visit Charges Inpatient E&M: 37195 Subs Hosp L2
--- NOTE | 2020-11-03 15:25 | RAD_ITS ---
STUDY: X-RAY - LEFT KNEE REASON FOR EXAM: Female, 80 years old. left knee pain and swelling TECHNIQUE: 3 view(s) of the knee. COMPARISON: None. FINDINGS: Normal visualized distal femur. Normal visualized proximal tibia and fibula. Normal proximal tibiofibular articulation. There is no demonstrated fracture. There is moderate degenerative arthrosis of the medial femorotibial compartment with moderate joint space narrowing. There is moderate degenerative arthrosis of the lateral femorotibial compartment with moderate joint space narrowing. There is moderate degenerative arthrosis of the patellofemoral articulation. There is a moderate volume joint effusion. The soft tissue structures are unremarkable. RAD/Knee 3 Views IMPRESSION: Degenerative arthrosis. Possible intra-articular calcific loose body. Electronically Signed: Real Barrientos MD at 17:00 EDT , Service support ,
[2020-11-03] MEDS: 0.9% Saline Lock 10 ML Syringe IV ×2 (17:44→20:18)
[2020-11-03 17:51] LABS: Bedside Glucose 125 mg/dL (70-110)
[2020-11-03] MEDS: Atorvastatin Calcium 10 MG Tablet 5 MG PO (22:17)
[2020-11-03] MEDS: Insulin Lispro 100 UNIT/ML INSULN.PEN SC (22:27)
[2020-11-03 22:35] LABS: Bedside Glucose 182 mg/dL (70-110)
[2020-11-04] VITALS (11 sets, daily range): BP systolic 111–144; BP diastolic 55–72; PULSE 74–91; RESP 16–18; TEMP 36.4–36.9; O2SAT 93–99
[2020-11-04] MEDS: 0.9% Normal Saline 1,000 ML 100 ML IV ×3 (00:39→21:58)
[2020-11-04] MEDS: Levothyroxine 100 MCG Tablet PO (06:36)
[2020-11-04 06:46] LABS: Bedside Glucose 125 mg/dL (70-110)
[2020-11-04 07:13] LABS: Absolute Lymphocyte Count 1.72 X10^3/uL (0.83-4.51); Basophil% 1.1 % (0-1); Eosinophil# 0.23 X10^3/uL; Eosinophils% 2.6 % (0-5); Hematocrit 42.3 % (37-47); Hemoglobin 13.6 g/dL (12.0-15.0); Lymphocyte # 1.72 X10^3/ul (0.83-4.51); Lymphocyte % 19.1 % (19-41); Mean Corp Hgb Conc 32.2 g/dL (32-36); Mean Corpuscular Hgb 27.8 pg (27.0-32.0); Mean Corpuscular Volume 86.3 fL (81-99); Mean Platelet Vol. 9.9 fl (6.2-12.0); Monocyte# 0.94 X10^3/uL; Monocyte% 10.4 % (0-10); NRBC Flagged by Analyzer 0 % (0-5); Neutrophil # 5.97 X10^3/uL (2.7-7.7); Neutrophil % 66.4 % (47-70); Platelet Count 262 K/mm3 (150-450); RBC Distribution Width CV 13.8 % (11.6-14.6); RBC Distribution Width SD 43.5 fl (35.1-43.9)
[2020-11-04 07:51] LABS: Anion Gap 7 (5-15); BUN 9 mg/dL (7-18); BUN/Creat Ratio 17.5 RATIO (10-20); Calcium,Total 9.5 mg/dL (8.5-10.1); Chloride 102 mmol/L (98-107); Creatinine, Serum 0.51 mg/dL (0.55-1.02); EST Glomerular Filtration Rate 122 mL/min (>60); Est Glom Filt Rate - Afr Amer 148 mL/min (>60); Estimated Creatinine Clearance 46.02 ml/min; Glucose 136 mg/dL (74-106); Potassium 3.2 mmol/L (3.5-5.1); Sodium Level 136 mmol/L (136-145)
[2020-11-04] MEDS: Metoprolol Tartrate 100 MG Tablet PO ×2 (08:22→21:57)
[2020-11-04] MEDS: Aspirin E.C. 81 MG Tablet PO ×2 (08:22→16:28)
[2020-11-04] MEDS: hydroCHLOROthiazide 25 MG Tablet PO (08:22)
[2020-11-04] MEDS: amLODIPine 10 MG Tablet PO (08:22)
[2020-11-04] MEDS: Famotidine 20 MG Tablet PO ×2 (08:22→21:57)
[2020-11-04] MEDS: Potassium Chloride Oral Tablet 20 MEQ PO (08:22)
[2020-11-04] MEDS: Enoxaparin 40 MG/0.4 ML Syringe SC (08:23)
[2020-11-04] MEDS: Losartan Potassium 100 MG Tablet PO (08:23)
[2020-11-04] MEDS: Glucerna Shake 120 ML LIQUID PO ×2 (08:23→11:09)
[2020-11-04] MEDS: Potassium Chloride Oral Tablet 20 MEQ 40 MEQ PO (08:24)
--- NOTE | 2020-11-04 10:36 | NURSING ---
charge nurse Carline HERNANDEZ assisting in providing care to pt
[2020-11-04] MEDS: Acetaminophen 325 MG Tablet 650 MG PO (11:16)
--- NOTE | 2020-11-04 11:18 | CASEMGMT ---
TIA called Faye with [facility] and asked if they had a chance to look at the referral. She said she only got part of the fax. TIA tried to re-fax to the same number and it did not work so TIA faxed it to another number Faye gave TIA ([phone]). Await their response. Yancy Reeder GENERATOR OPERATOR STRAIGHT BEVEL GEAR EQUIPMENT HIRE MANAGER
[2020-11-04 11:20] LABS: Bedside Glucose 125 mg/dL (70-110)
--- NOTE | 2020-11-04 12:49 | PN.HOSP_ITS ---
Subjective Subjective Patient seen and examined. She was quite lethargic but responsive, and had no active complaints. Review of systems is otherwise negative. Objective Data Objective Data Vital Signs: Vital Signs Temp Pulse Resp BP Pulse Ox 97.6 F L 80 16 136/60 H 95 11/04/20 08:15 11/04/20 08:22 11/04/20 08:15 11/04/20 08:22 11/04/20 10:34 Oxygen Delivery Method Room Air Weight: 181 lb 14.102 oz Body Mass Index (BMI) 27.7 Intake & Output: Intake and Output for Last 24 Hours 11/02/20 11/03/20 11/04/20 23:59 23:59 23:59 Intake Total 1316.67 / 1316.67 2263.33 / 2263.33 1796.67 / 1796.67 Output Total 250 / 250 2100 / 2100 1250 / 1250 Balance 1066.67 / 1066.67 163.33 / 163.33 546.67 / 546.67 Medical Nutrition Assessment Dietitian: Nutrition Therapy Diagnosis Start: 11/03/20 10:46 Freq: Status: Active Protocol: Document 11/03/20 13:53 RMA (Rec: 11/03/20 13:54 RMA [id number]) Nutrition Malnutrition Evidence of Malnutrition Exists No Clinical Problem Altered Nutrient-Related Laboratory Values Etiology related to endocrine dysfunction/DMII Signs/Symptoms as evidenced by fluctuating blood glucose levels 115, 123, 109, 189 Status Active Problem Recommendation Dietitian Recommendations/Changes Will change diet to Cardiac/ Carbohydrate-Controlled. Will continue 120ml glucerna shake TID w/ medpass as PO established; d/c on follow-up if PO and wt remain adequate. Lab / Micro Data Result Diagrams: 11/04/20 06:45 11/04/20 06:45 Labs: Laboratory Results - last 24 hr 11/03/20 13:13: POC Glucose 123 H 11/03/20 17:38: POC Glucose 125 H 11/03/20 22:16: POC Glucose 182 H 11/04/20 06:35: POC Glucose 125 H 11/04/20 06:45: WBC 9.0, RBC 4.90, Hgb 13.6, Hct 42.3, MCV 86.3, MCH 27.8, MCHC 32.2, RDW Std Deviation 43.5, RDW Coeff of Desmond 13.8, Plt Count 262, MPV 9.9, Immature Gran % (Auto) 0.400, Neut % (Auto) 66.4, Lymph % (Auto) 19.1, [place] % (Auto) 10.4 H, Eos % (Auto) 2.6, Baso % (Auto) 1.1 H, Absolute Neuts (auto) 6.0, Absolute Lymphs (auto) 1.72, Nucleated RBC % 0 11/04/20 06:45: Sodium 136, Potassium 3.2 L, Chloride 102, Carbon Dioxide 27.0, Anion Gap 7, BUN 9, Creatinine 0.51 L, Estim Creat Clear Calc 46.02, Est GFR (MDRD) Af Amer 148, Est GFR (MDRD) Non-Af 122, BUN/Creatinine Ratio 17.5, Glucose 136 H, Calcium 9.5 11/04/20 11:15: POC Glucose 125 H Radiography Diagnostic Testing: Radiology Impression Knee X-Ray 11/03/20 15:25 IMPRESSION: Degenerative arthrosis. Possible intra-articular calcific loose body. Electronically Signed: Real Barrientos MD at 17:00 EDT , Service support , Rhythm Strip Rhythm Strip: Sinus Rhythm Rate: 80 Ectopy: None Physical Exam Const alert and no apparent distress Orientation / Consciousness: lethargic Exam Limitations: no limitations Nutritional Appearance: obese HEENT head/scalp atraumatic and moist oral mucous membranes Head and Scalp: normocephalic Eyes PERRL, EOMs intact bilaterally and conjunctivae normal Neck no lymphadenopathy and supple Resp normal respiratory effort, no retractions, no use of accessory muscles and clear to auscultation bilaterally Cardio regular rate, regular rhythm, S1 normal heart sound, S2 normal heart sound and no murmurs GI normal to inspection, nondistended, normoactive bowel sounds, soft to palpation, non-tender and non-distended Extremity normal to inspection Extremity Narrative: swelling of left knee is much better. Peripheral Pulses: Yes pulses 2+ throughout Skin no rashes or lesions noted Neuro Neuro Narrative: drowsy Sensorium / Orientation: awake Psych affect normal Assessment & Plan Assessment/Plan (1) Adult failure to thrive: (2) Generalized weakness: PLAN: #Debility with failure to thrive * PT/OT on board. Fall precautions * case management on board for placement as needed * #Hypothyroidism * TSH is mildly low, but free T4 iw WNL * on synthroid. will continue * #Hypokalemia: K is still 3.2 today. will replace and trend. #Hyponatremia: resolved #paroxysmal afib: on metoprolol and aspirin #Hyperlipidemia: on statin #Hypertension: On amlodipine, losartan, hydrochlorothiazide and metoprolol. IV hydralazine as needed. #Type 2 diabetes mellitus: On insulin sliding scale. Accu-Cheks AC at bedtime. #GERD with history of hiatal hernia: Stable. On famotidine. DVT prophylaxis: Lovenox Disposition: awaiting placement. Charges/Coding Visit Charges Inpatient E&M: 87562 Subs Hosp L2
--- NOTE | 2020-11-04 13:35 | CASEMGMT ---
TIA has not heard from [facility] so TIA called Faye on her cell phone and the office phone. TIA left voice mails requesting a return call regarding whether or not they can accept patient. Yancy DE
--- NOTE | 2020-11-04 15:15 | CASEMGMT ---
TIA called Faye at [facility]. She said she will call the nurse to see if [facility] can accept patient. Await return call. Yancy DE
[2020-11-04] MEDS: Insulin Lispro 100 UNIT/ML INSULN.PEN SC ×2 (16:28→21:58)
[2020-11-04] MEDS: Ibuprofen 400 MG Tablet PO (18:33)
[2020-11-04 18:47] LABS: Bedside Glucose 173 mg/dL (70-110)
[2020-11-04] MEDS: Atorvastatin Calcium 10 MG Tablet 5 MG PO (21:57)
[2020-11-04 22:06] LABS: Bedside Glucose 157 mg/dL (70-110)
[2020-11-05 03:23] VITALS: BP 137/59; PULSE 64; RESP 18; TEMP 36.7; O2SAT 98
[2020-11-05] MEDS: Levothyroxine 100 MCG Tablet PO (05:38)
[2020-11-05] MEDS: Acetaminophen 325 MG Tablet 650 MG PO ×2 (05:38→17:19)
[2020-11-05 06:40] LABS: Bedside Glucose 123 mg/dL (70-110)
[2020-11-05 07:09] LABS: Absolute Lymphocyte Count 1.77 X10^3/uL (0.83-4.51); Absolute Neutrophil Count 4.2 X10^3/uL (2.0-7.7); Basophil# 0.07 X10^3/uL; Eosinophil# 0.24 X10^3/uL; Eosinophils% 3.3 % (0-5); Hematocrit 38.9 % (37-47); Hemoglobin 12.7 g/dL (12.0-15.0); Lymphocyte # 1.77 X10^3/ul (0.83-4.51); Lymphocyte % 24.4 % (19-41); Mean Corp Hgb Conc 32.6 g/dL (32-36); Mean Corpuscular Volume 85.7 fL (81-99); Mean Platelet Vol. 10.3 fl (6.2-12.0); Monocyte% 12.4 % (0-10); NRBC Flagged by Analyzer 0 % (0-5); Neutrophil # 4.24 X10^3/uL (2.7-7.7); Neutrophil % 58.3 % (47-70); Platelet Count 229 K/mm3 (150-450); RBC Distribution Width CV 13.9 % (11.6-14.6); RBC Distribution Width SD 43.8 fl (35.1-43.9); Red Blood Count 4.54 M/mm3 (4.2-5.4); White Blood Count 7.3 K/mm3 (4.4-11.0)
[2020-11-05 07:54] LABS: Anion Gap 10 (5-15); BUN 9 mg/dL (7-18); BUN/Creat Ratio 17.6 RATIO (10-20); Calcium,Total 9.5 mg/dL (8.5-10.1); Chloride 103 mmol/L (98-107); Creatinine, Serum 0.51 mg/dL (0.55-1.02); EST Glomerular Filtration Rate 123 mL/min (>60); Est Glom Filt Rate - Afr Amer 149 mL/min (>60); Estimated Creatinine Clearance 46.02 ml/min; Glucose 127 mg/dL (74-106); Potassium 3.6 mmol/L (3.5-5.1); Sodium Level 138 mmol/L (136-145)
[2020-11-05] MEDS: Famotidine 20 MG Tablet PO (08:25)
[2020-11-05] MEDS: amLODIPine 10 MG Tablet PO (08:25)
[2020-11-05] MEDS: Aspirin E.C. 81 MG Tablet PO ×2 (08:26→17:18)
[2020-11-05] MEDS: hydroCHLOROthiazide 25 MG Tablet PO (08:26)
[2020-11-05] MEDS: Potassium Chloride Oral Tablet 20 MEQ PO (08:26)
[2020-11-05 08:27] VITALS: PULSE 74
[2020-11-05] MEDS: Metoprolol Tartrate 100 MG Tablet PO (08:27)
[2020-11-05] MEDS: Losartan Potassium 100 MG Tablet PO (08:27)
[2020-11-05] MEDS: Enoxaparin 40 MG/0.4 ML Syringe SC (08:28)
[2020-11-05 08:30] VITALS: BP 132/72; PULSE 74; RESP 18; TEMP 35.8; O2SAT 98
[2020-11-05] MEDS: Senna/Docusate Sodium 1 Tablet 2 TABLET PO (08:34)
[2020-11-05] MEDS: Ibuprofen 400 MG Tablet PO (08:34)
--- NOTE | 2020-11-05 08:49 | CASEMGMT ---
TIA received a voice mail yesterday from aFye at [facility]. They can accept patient and she started the pre-cert. She wanted to know if patient will be short term or [facility]. 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 Yancy Reeder ASSURANCE AUDITOR KENISHA
--- NOTE | 2020-11-05 12:08 | PN.HOSP_ITS ---
Subjective Subjective Patient seen and examined. She was alert and communicative today and had no complaints. Review of systems otherwise negative. She is awaiting placement. Objective Data Objective Data Vital Signs: Vital Signs Temp Pulse Resp BP Pulse Ox 96.4 F L 74 18 132/72 H 98 11/05/20 08:30 11/05/20 08:30 11/05/20 08:30 11/05/20 08:30 11/05/20 08:30 Oxygen Delivery Method Room Air Weight: 183 lb 6.793 oz Body Mass Index (BMI) 27.7 Intake & Output: Intake and Output for Last 24 Hours 11/03/20 11/04/20 11/05/20 23:59 23:59 23:59 Intake Total 2263.33 / 2263.33 3046.67 / 3046.67 1000 / 1000 Output Total 2100 / 2100 1475 / 1475 1000 / 1000 Balance 163.33 / 163.33 1571.67 / 1571.67 0 / 0 Medical Nutrition Assessment Dietitian: Nutrition Therapy Diagnosis Start: 11/03/20 10:46 Freq: Status: Active Protocol: Document 11/03/20 13:53 RMA (Rec: 11/03/20 13:54 RMA [id number]) Nutrition Malnutrition Evidence of Malnutrition Exists No Clinical Problem Altered Nutrient-Related Laboratory Values Etiology related to endocrine dysfunction/DMII Signs/Symptoms as evidenced by fluctuating blood glucose levels 115, 123, 109, 189 Status Active Problem Recommendation Dietitian Recommendations/Changes Will change diet to Cardiac/ Carbohydrate-Controlled. Will continue 120ml glucerna shake TID w/ medpass as PO established; d/c on follow-up if PO and wt remain adequate. Lab / Micro Data Result Diagrams: 11/05/20 06:50 11/05/20 06:50 Labs: Laboratory Results - last 24 hr 11/04/20 16:26: POC Glucose 173 H 11/04/20 21:56: POC Glucose 157 H 11/05/20 06:36: POC Glucose 123 H 11/05/20 06:50: WBC 7.3, RBC 4.54, Hgb 12.7, Hct 38.9, MCV 85.7, MCH 28.0, MCHC 32.6, RDW Std Deviation 43.8, RDW Coeff of Desmond 13.9, Plt Count 229, MPV 10.3, Immature Gran % (Auto) 0.600, Neut % (Auto) 58.3, Lymph % (Auto) 24.4, [place] % ( Auto) 12.4 H, Eos % (Auto) 3.3, Baso % (Auto) 1.0, Absolute Neuts (auto) 4.2, Absolute Lymphs (auto) 1.77, Nucleated RBC % 0 11/05/20 06:50: Sodium 138, Potassium 3.6, Chloride 103, Carbon Dioxide 25.0, Anion Gap 10, BUN 9, Creatinine 0.51 L, Estim Creat Clear Calc 46.02, Est GFR (MDRD) Af Amer 149, Est GFR (MDRD) Non-Af 123, BUN/Creatinine Ratio 17.6, Glucose 127 H, Calcium 9.5 Rhythm Strip Rhythm Strip: Sinus Rhythm Rate: 80 Ectopy: None Physical Exam Const alert, oriented x3 and no apparent distress Exam Limitations: no limitations Nutritional Appearance: obese HEENT head/scalp atraumatic and moist oral mucous membranes Head and Scalp: normocephalic Eyes PERRL, EOMs intact bilaterally and conjunctivae normal Neck no lymphadenopathy and supple Resp normal respiratory effort, no retractions, no use of accessory muscles and clear to auscultation bilaterally Cardio regular rate, regular rhythm, S1 normal heart sound, S2 normal heart sound and no murmurs GI normal to inspection, nondistended, normoactive bowel sounds, soft to palpation, non-tender and non-distended Extremity normal to inspection Extremity Narrative: swelling of left knee is much better. Peripheral Pulses: Yes pulses 2+ throughout Skin no rashes or lesions noted Neuro oriented x3 Neuro Narrative: drowsy Sensorium / Orientation: awake and alert Psych affect normal Assessment & Plan Assessment/Plan (1) Adult failure to thrive: (2) Generalized weakness: PLAN: #Debility with failure to thrive * PT/OT on board. Fall precautions * case management on board * awaiting placement * #Hypothyroidism * TSH is mildly low, but free T4 iw WNL * on synthroid. will continue * #Hypokalemia:resolved. k is 3.6 today #paroxysmal afib: on metoprolol and aspirin #Hyperlipidemia: on statin #Hypertension: On amlodipine, losartan, hydrochlorothiazide and metoprolol. IV hydralazine as needed. #Type 2 diabetes mellitus: On insulin sliding scale. Accu-Cheks AC at bedtime. #GERD with history of hiatal hernia: Stable. On famotidine. DVT prophylaxis: Lovenox Disposition: awaiting placement. Charges/Coding Visit Charges Inpatient E&M: 25120 Subs Hosp L2
[2020-11-05] MEDS: 0.9% Saline Lock 10 ML Syringe IV (12:39)
[2020-11-05] MEDS: Ondansetron 4 MG/2 ML Vial IV (12:39)
[2020-11-05] MEDS: Insulin Lispro 100 UNIT/ML INSULN.PEN SC ×2 (12:42→17:18)
[2020-11-05 12:56] LABS: Bedside Glucose 197 mg/dL (70-110)
--- NOTE | 2020-11-05 14:26 | DS.PCM_ITS ---
Providers Date of Admission: 11/02/20 Primary Care Physician: Dr. Ponce Hatfield MD Reason For Visit: FTT ADULT Diagnosis Discharge Diagnosis (1) Adult failure to thrive: Status: Acute Code(s): R62.7 - Adult failure to thrive (2) Generalized weakness: Status: Acute Code(s): R53.1 - Weakness Medications at Discharge Home Medications amlodipine 10 mg PO DAILY 07/13/16 levothyroxine 100 mcg PO DAILY 07/13/16 losartan-hydrochlorothiazide 1 tab PO DAILY 07/13/16 metformin 500 mg PO TIDCM 07/13/16 metoprolol tartrate 100 mg PO BID 07/13/16 nzngerhz-mef-AX-lycopen-lutein 1 ea PO DAILY 07/13/16 omega-3 fatty acids 300 mg PO DAILY 07/13/16 simvastatin 5 mg PO QHS 07/13/16 aspirin 81 mg tablet,delayed release 81 mg PO BID tab 08/22/17 potassium chloride 20 mEq oral packet 20 meq PO QDAY 08/22/17 Hospital Course Operations None Procedures None Summary of Care Provided Minutes Spent on Discharge: 45 Hospital Course: Patient is a 80-year-old female with an extensive past medical history as outlined was admitted through the ED on 11/02/2020 with a complaint of progressive decline and debility for 3 weeks prior to admission with inability to even get up from her chair. She was unable to care for self and family was unable to care for her as well. Labs were essentially unremarkable and urinalysis was negative for any infection. She was admitted to be managed for debility. PT OT was consulted and patient was skilled as needed a skilled facility. Patient remained stable and her hospital course was not complicated. She was [facility] a detention facility on 11/04/2020 and is follow-up with her primary care doctor within 1 to 2 weeks. Patient was seen and examined prior to discharge. She had no complaints and felt well. Review of systems otherwise negative. Labs and vitals reviewed. Home medication reviewed and reconciled. Physical Exam Const alert, oriented x3 and no apparent distress General Appearance: cooperative, comfortable and well kempt Orientation / Consciousness: lethargic Exam Limitations: no limitations Nutritional Appearance: obese HEENT normocephalic, head/scalp atraumatic and moist oral mucous membranes Eyes PERRL, EOMs intact bilaterally and conjunctivae normal Neck no lymphadenopathy and supple Resp normal respiratory effort, no retractions, no use of accessory muscles and clear to auscultation bilaterally Cardio regular rate, regular rhythm, S1 normal heart sound, S2 normal heart sound and no murmurs GI normal to inspection, nondistended, normoactive bowel sounds, soft to palpation, non-tender and non-distended Extremity normal to inspection Extremity Narrative: swelling of left knee is much better. Skin no rashes or lesions noted Neuro oriented x3 Neuro Narrative: drowsy Sensorium / Orientation: awake and alert Psych affect normal Medical Records Data Medical Nutrition Assessment Dietitian: Nutrition Therapy Diagnosis Start: 11/03/20 10:46 Freq: Status: Active Protocol: Document 11/03/20 13:53 RMA (Rec: 11/03/20 13:54 RMA [id number]) Nutrition Malnutrition Evidence of Malnutrition Exists No Clinical Problem Altered Nutrient-Related Laboratory Values Etiology related to endocrine dysfunction/DMII Signs/Symptoms as evidenced by fluctuating blood glucose levels 115, 123, 109, 189 Status Active Problem Recommendation Dietitian Recommendations/Changes Will change diet to Cardiac/ Carbohydrate-Controlled. Will continue 120ml glucerna shake TID w/ medpass as PO established; d/c on follow-up if PO and wt remain adequate. Weight / BMI Weight Weight: 183 lb 6.793 oz Body Mass Index (BMI) 27.7 ABG / Lab / Microbiology Data Result Diagrams: 11/05/20 06:50 11/05/20 06:50 Laboratory: Laboratory Results - last 24 hr 11/04/20 16:26: POC Glucose 173 H 11/04/20 21:56: POC Glucose 157 H 11/05/20 06:36: POC Glucose 123 H 11/05/20 06:50: WBC 7.3, RBC 4.54, Hgb 12.7, Hct 38.9, MCV 85.7, MCH 28.0, MCHC 32.6, RDW Std Deviation 43.8, RDW Coeff of Desmond 13.9, Plt Count 229, MPV 10.3, Immature Gran % (Auto) 0.600, Neut % (Auto) 58.3, Lymph % (Auto) 24.4, [place] % (Auto) 12.4 H, Eos % (Auto) 3.3, Baso % (Auto) 1.0, Absolute Neuts (auto) 4.2, Absolute Lymphs (auto) 1.77, Nucleated RBC % 0 11/05/20 06:50: Sodium 138, Potassium 3.6, Chloride 103, Carbon Dioxide 25.0, Anion Gap 10, BUN 9, Creatinine 0.51 L, Estim Creat Clear Calc 46.02, Est GFR (MDRD) Af Amer 149, Est GFR (MDRD) Non-Af 123, BUN/Creatinine Ratio 17.6, Glucose 127 H, Calcium 9.5 11/05/20 12:38: POC Glucose 197 H D/C Instructions Discharge Diet: Low fat / Low cholesterol Discharge Activity: Return to Normal Activity Weight Bearing Status: Weight bearing as tolerated Call your doctor if you observe: Fever of 101 or Higher, Increased palpitations (irregular heartbeat) and Uncontrolled pain Meaningful Use Info Meaningful Use Diagnoses (Choose all that apply): None applicable Discharge Plan Admission Admit Date/Time: 11/02/20 20:16 Primary Reason for Your Visit: weakness and debility Attending Provider: Lelia Eddy Primary Care Provider: Ponce Hatfield Discharge Orders/Prescriptions Prescriptions: Continued potassium chloride [Klor-Con] 20 mEq packet 20 meq PO QDAY RF: 0 metformin 500 MG tablet 500 mg PO TIDCM RF: 0 metoprolol tartrate 100 MG tablet 100 mg PO BID RF: 0 levothyroxine 100 MCG tablet 100 mcg PO DAILY RF: 0 losartan-hydrochlorothiazide 1 TAB tablet 1 tab PO DAILY RF: 0 amlodipine 10 MG tablet 10 mg PO DAILY RF: 0 simvastatin 5 MG tablet 5 mg PO QHS RF: 0 zgvxnqcn-cvl-RC-lycopen-lutein 1 EACH tablet 1 ea PO DAILY RF: 0 omega-3 fatty acids 300 MG capsule 300 mg PO DAILY RF: 0 aspirin 81 mg tablet,delayed release (DR/EC) 81 mg PO BID RF: 0 Referrals / Follow Up: Ponce Hatfield MD [Primary Care Provider] - Within 2 Weeks Disposition Disposition (needs filled in before D/C Order can be placed): [facility] Facility Charges/Coding Visit Charges Inpatient E&M: 95977 Disch Hosp
--- NOTE | 2020-11-05 14:30 | TREXTCAR_ITS ---
Diet 11/03/20 13:54 Diet: Carbohydrate Controlled Food consistency:: Regular Liquid Consistency:: Regular/Thin Dietary Modifications:: Cardiac / Heart Healthy Type of Dietary Supplement:: Glucerna Shake Is pt able to select menu?: No Problem/Diagnosis (1) Adult failure to thrive: Status: Acute (2) Generalized weakness: Status: Acute Allergies/Procedures Done in Hospital Allergies No Known Allergies Allergy (Verified 11/02/20 15:04) Type of Care/Length of Stay Estimated LOS: Convalescent Care Less Than 30 days Type of Care Needed: Skilled Rehab Potential: Fair Prognosis: Fair Additional Orders/Day of Discharge Day of Discharge: 11/05/20 Dietary and Speech Recommendations Dietitian Recommendations/Changes: Will change diet to Cardiac/Carbohydrate- Controlled. Will continue 120ml glucerna shake TID w/ medpass as PO established; d/c on follow-up if PO and wt remain adequate. Discharge Plan Admission Admit Date/Time: 11/02/20 20:16 Primary Reason for Your Visit: weakness and debility Attending Provider: Lelia Eddy Primary Care Provider: Ponce Hatfield Discharge Orders/Prescriptions Prescriptions: Continued potassium chloride [Klor-Con] 20 mEq packet 20 meq PO QDAY RF: 0 metformin 500 MG tablet 500 mg PO TIDCM RF: 0 metoprolol tartrate 100 MG tablet 100 mg PO BID RF: 0 levothyroxine 100 MCG tablet 100 mcg PO DAILY RF: 0 losartan-hydrochlorothiazide 1 TAB tablet 1 tab PO DAILY RF: 0 amlodipine 10 MG tablet 10 mg PO DAILY RF: 0 simvastatin 5 MG tablet 5 mg PO QHS RF: 0 unxgbhef-xnj-FD-lycopen-lutein 1 EACH tablet 1 ea PO DAILY RF: 0 omega-3 fatty acids 300 MG capsule 300 mg PO DAILY RF: 0 aspirin 81 mg tablet,delayed release (DR/EC) 81 mg PO BID RF: 0 Referrals / Follow Up: Ponce Hatfield MD [Primary Care Provider] - Within 2 Weeks Disposition Disposition (needs filled in before D/C Order can be placed): Nursing Home Facility
--- NOTE | 2020-11-05 15:23 | NURSING ---
specimen sent for covid test.
--- NOTE | 2020-11-05 16:38 | CASEMGMT ---
Patient was approved to go to [facility]. TIA notified physician. SW called patient's son and let him know. He was on his way to see patient. SW told him she will be here for a little bit yet. TIA faxed orders to [facility] and negative COVID test. TIA also arranged for patient to get picked up at 530 via cot. TIA notified RN, patient, and CC via fax. PASRR was completed on [facility] as patient is observation status. Plan: d/c to [facility] under skilled level of care on a PASRR. [facility] transported via cot. Yancy Reeder [employer] K[employer]HA
[2020-11-05 17:23] VITALS: BP 138/69; PULSE 75; RESP 18; TEMP 35.9; O2SAT 98
[2020-11-05 17:30] LABS: Bedside Glucose 150 mg/dL (70-110)
== END 2020-11-05 17:40 | disposition skilled nursing facility (03) ==
LOC: ED 20:11 → PCU 20:22
PROVIDERS: Admitting Provider Family Medicine; Emergency Provider Emergency Medicine; PCP Family Medicine; Visit Provider Student in an Organized Health Care Education/Training Program
DX: R62.7 Adult failure to thrive (principal); R53.1 Weakness; E11.9 Type 2 diabetes mellitus without complications; I48.0 Paroxysmal atrial fibrillation; E03.9 Hypothyroidism, unspecified; E78.5 Hyperlipidemia, unspecified; K21.9 Gastro-esophageal reflux disease without esophagitis; K44.9 Diaphragmatic hernia without obstruction or gangrene; I10 Essential (primary) hypertension; E87.6 Hypokalemia; Z79.899 Other long term (current) drug therapy; Z79.82 Long term (current) use of aspirin; Z79.84 Long term (current) use of oral hypoglycemic drugs; E87.1 Hypo-osmolality and hyponatremia
CPT/HCPCS: 36415; 71045; 73562; 80048; 80053; 81001; 82962; 83735; 84439; 84443; 84484; 85025; 87426; 93005; 96361; 96372; 96374; 97110; 97163; 97167; 97530; 97535; 97802; 99218; 99251; 99285; J7030; P9612; A4216; G0378; G0463; J2405

== ENCOUNTER → 2020-12-16 05:00 | Outpatient (REF) | payer MEDICARE, MEDICAID, SELFPAY ==
[2020-12-16 08:08] LABS: Prealbumin 7.6 mg/dL (20.0-40.0)
== END ==
LOC: OLS.SW300 05:00
PROVIDERS: PCP Family Medicine; Visit Provider Family Medicine
DX: R62.7 Adult failure to thrive (principal)
CPT/HCPCS: 36415; 82040; 84134

== ENCOUNTER 2020-12-16 19:33 | Emergency (ER) | payer MEDICARE, SELFPAY ==
[2020-12-16 19:35] VITALS: BP 105/71; PULSE 128; RESP 12; TEMP 36.7; O2SAT 95; BMI 27.3
--- NOTE | 2020-12-16 19:44 | CT_ITS ---
INDICATION: abdominal pain, vaginal bleeding EXAMINATION: CT Abdomen And Pelvis W/O Contrast Injection TECHNIQUE: Helically acquired images were obtained of the abdomen and pelvis without the use of IV contrast. A radiation dose optimization technique was used for this scan. Oral contrast: None. COMPARISON: None FINDINGS: Evaluation of the solid organs and vascular structures is limited without intravenous contrast. Visualized lung bases: Unremarkable Liver: Unremarkable Gallbladder: Unremarkable Spleen: Multiple splenic granulomas. Pancreas: Unremarkable Adrenal Glands: Unremarkable Kidneys: Unremarkable Vasculature: Moderate aortoiliac atherosclerotic disease. GI Tract: The rectum is dilated and contains a large amount of stool. Lymphadenopathy: None Peritoneum: No ascites. Bladder: GALVAN catheter in place. Reproductive organs: The uterus is dilated and contains a large amount of heterogeneous material which has the appearance of stool. Bones/Soft tissues: There are diffuse degenerative changes of the spine. CT/Abdomen/Pelvis without Cont IMPRESSION: The uterus is dilated and contains a large amount of heterogeneous material which has the appearance of stool. This is concerning for possible rectouterine fistula. Consider pelvic ultrasound as well as possible MR pelvis fistula protocol. Rectal dilatation with impacted stool. Electronically Signed: Izaiah Rosas MD at 20:52 EDT Tel , Service support ,
--- NOTE | 2020-12-16 19:47 | EX.ED.DYSGE1 ---
HPI History of Present Illness Chief Complaint: Vag Bleeding Detail of Chief Complaint: Vaginal bleeding x36 hours Informant: patient Narrative Narrative: Patient presents to the emergency department via EMS from [facility] with complaint of profuse bleeding for the last 36 hours. It was unclear if they felt she was having rectal or vaginal bleeding. Patient unable to give any history. There was some thought that patient was evaluated for hospice. Patient is currently on Lovenox and aspirin. [facility] Medical History (Updated 12/16/20 @ 22:[address] Roman Patel DO) Afib Diabetes GERD (gastroesophageal reflux disease) Hiatal hernia HTN (hypertension) Hyperlipidemia Hypokalemia Hypothyroidism Home Medications amlodipine 10 mg PO DAILY 07/13/16 [History Last Taken Unknown] levothyroxine 100 mcg PO DAILY 07/13/16 [History Last Taken Unknown] losartan-hydrochlorothiazide 1 tab PO DAILY 07/13/16 [History Last Taken Unknown] metformin 500 mg PO TIDCM 07/13/16 [History Last Taken 07/13/16 08:00] metoprolol tartrate 100 mg PO BID 07/13/16 [History Last Taken 07/13/16 08:00] abcglqdc-fjl-VM-lycopen-lutein 1 ea PO DAILY 07/13/16 [History Last Taken Unknown] omega-3 fatty acids 300 mg PO DAILY 07/13/16 [History Last Taken Unknown] simvastatin 5 mg PO QHS 07/13/16 [History Last Taken Unknown] aspirin 81 mg tablet,delayed release 81 mg PO BID tab 08/22/17 [History Last Taken Unknown] potassium chloride 20 mEq oral packet 20 meq PO QDAY 08/22/17 [History Last Taken Unknown] lorazepam [Ativan] 0.5 mg PO Q4H PRN #20 tab 12/16/20 [Rx Last Taken Unknown] morphine concentrate 5 mg PO Q4H PRN 5 Days #30 ml 12/16/20 [Rx Last Taken Unknown] Allergy/AdvReac Type Severity Reaction Status Date / Time No Known Allergies Allergy Verified 11/02/20 15:04 Family History (Updated 11/02/20 @ 20:[address] Sadie Gary MD) Mother Hypertension Father Diabetes Surgical History History of esophagogastroduodenoscopy (EGD) Social History (Updated 11/02/20 @ 20:[address] Sadie Gary MD) household members: other details: Lives with her son. Smoking Status: Never smoker alcohol intake: never substance use type: does not use ROS ROS ED Review of Systems ROS Unobtainable: due to mental condition, due to mental status and other; Denies due to encephalopathy or due to endotracheal tube EXAM Physical Exam Const Vital Signs: 12/16/20 19:35 12/16/20 19:56 12/16/20 20:37 Temperature 98.1 F Temperature Source Temporal Pulse Rate 128 H 124 H 116 H Respiratory Rate 12 17 20 H Blood Pressure 105/71 108/74 Blood Pressure Mean 82 85 Pulse Ox 95 98 92 Oxygen Delivery Method Room Air Room Air Room Air 12/16/20 21:48 Temperature Temperature Source Pulse Rate 119 H Respiratory Rate 12 Blood Pressure 107/63 Blood Pressure Mean 77 Pulse Ox 95 Oxygen Delivery Method Room Air Positive well nourished and well developed General Appearance ED: well developed and NAD HEENT Reports TM's clear and moist mucous membranes normocephalic and atraumatic; Negative for trauma or tenderness Tympanic Membrane ED: Yes TM's clear Eyes PERRL and EOMs intact bilaterally General Eye ED: Negative for pale conjunctiva or scleral icterus Neck no lymphadenopathy, supple and no JVD General: Negative for tenderness Chest Wall inspection of chest normal and palpation of chest normal Chest: Negative for tenderness Resp normal respiratory effort and clear to auscultation bilaterally Effort and Inspection: Negative for respiratory distress or pain with movement Auscultation: Negative for rhonchi, wheezes or diminished lung sounds Cardio regular rate, regular rhythm, S1 normal heart sound, S2 normal heart sound and no murmurs Peripheral Pulses: pulses 2+ throughout GI normal to inspection, nondistended, normoactive bowel sounds, soft to palpation, non-tender, non-distended and no masses GI Narrative: Patient has some suprapubic tenderness on palpation with some fullness noted in the suprapubic region concerning for mass. Narrative: On exam patient was being cleaned up by nursing staff as they entered the room. She was noted to have bleeding within her adult diaper and it does appear to be coming from the vagina and not the rectum. Patient had also some brown stool within the adult diaper. Back/Spine no CVA tenderness and no thoracic nor lumbar tenderness Extremity normal to inspection General Extremety ED: Negative for edema General Extremity: Negative for edema Neuro oriented x3, CN's II-XII intact bilaterally, no sensory deficits noted and gait normal Sensorium / Orientation: awake, alert, oriented to person, oriented to place and oriented to time Motor Exam: strength 5/5 throughout and strength abnormal Psych mental status grossly normal Skin no rashes or lesions noted and no wounds MDM MDM MDM Narrative Medical decision making narrative: We contacted patient's power of employment law attorney her son who stated that he had to work and could not come to the emergency department. He wanted patient made comfortable without any heroic interventions. He is comfortable with making patient a hospice patient. Hospice did evaluate patient in the emergency department and will discharge patient back to the halfway where she will be made hospice. I will write her prescription for morphine and lorazepam. Patient was made comfort care only measures. 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 I manually disimpacted her rectum and as I was doing that large amount of free-flowing stool was coming from her vagina. Lab Data Attestation: I reviewed the patient's lab results. Labs: Laboratory Results - last 24 hr 12/16/20 12/16/20 12/16/20 19:57 19:57 19:57 WBC 33.0 H* RBC 4.96 Hgb 13.5 Hct 44.0 MCV 88.7 MCH 27.2 MCHC 30.7 L RDW Std Deviation 47.2 H RDW Coeff of Desmond 14.7 H Plt Count 387 MPV 11.4 Immature Gran % (Auto) 2.700 H Neut % (Auto) 81.5 H Lymph % (Auto) 9.5 L [place] % (Auto) 5.6 Eos % (Auto) 0.2 Baso % (Auto) 0.5 Absolute Neuts (auto) 26.9 H Absolute Lymphs (auto) 3.15 Nucleated RBC % 0.1 Differential Comment SCANNED Diff Path Review May foll Sodium 147 H Potassium 5.2 H Chloride 116 H Carbon Dioxide 28.0 Anion Gap 3 L BUN 54 H Creatinine 1.34 H Estim Creat Clear Calc 30.63 Est GFR (MDRD) Af Amer 49 L Est GFR (MDRD) Non-Af 41 L BUN/Creatinine Ratio 40.3 H Glucose 237 H Lactic Acid Cancelled Calcium 10.2 H Blood Type Antibody Screen 12/16/20 19:57 WBC RBC Hgb Hct MCV MCH MCHC RDW Std Deviation RDW Coeff of Desmond Plt Count MPV Immature Gran % (Auto) Neut % (Auto) Lymph % (Auto) [place] % (Auto) Eos % (Auto) Baso % (Auto) Absolute Neuts (auto) Absolute Lymphs (auto) Nucleated RBC % Differential Comment Diff Path Review Sodium Potassium Chloride Carbon Dioxide Anion Gap BUN Creatinine Estim Creat Clear Calc Est GFR (MDRD) Af Amer Est GFR (MDRD) Non-Af BUN/Creatinine Ratio Glucose Lactic Acid Calcium Blood Type O POSITIVE Antibody Screen NEGATIVE Radiography Diagnostic Testing: Radiology Impression Abdomen/Pelvis CT 12/16/20 19:44 IMPRESSION: The uterus is dilated and contains a large amount of heterogeneous material which has the appearance of stool. This is concerning for possible rectouterine fistula. Consider pelvic ultrasound as well as possible MR pelvis fistula protocol. Rectal dilatation with impacted stool. Electronically Signed: Izaiah Rosas MD at 20:52 EDT Tel , Service support , Discharge Plan Triage Chief Complaint: Vag Bleeding ED Provider: Roman Patel Dx/Rx/DC Orders Clinical Impression: Generalized weakness, Adult failure to thrive, Abnormal vaginal bleeding, Dehydration, Colouterine fistula Instructions: Dehydration, ED Weakness (Uncertain Cause), ED Anal Fistula Prescriptions: New lorazepam [Ativan] 0.5 mg tablet 0.5 mg PO Q4H PRN (Reason: anxiety) Qty: 20 RF: 0 morphine concentrate 100 mg/5 mL (20 mg/mL) solution 5 mg PO Q4H PRN (Reason: pain/ dyspnea) 5 Days Qty: 30 RF: 0 No Action potassium chloride [Klor-Con] 20 mEq packet 20 meq PO QDAY RF: 0 metformin 500 MG tablet 500 mg PO TIDCM RF: 0 metoprolol tartrate 100 MG tablet 100 mg PO BID RF: 0 levothyroxine 100 MCG tablet 100 mcg PO DAILY RF: 0 losartan-hydrochlorothiazide 1 TAB tablet 1 tab PO DAILY RF: 0 amlodipine 10 MG tablet 10 mg PO DAILY RF: 0 simvastatin 5 MG tablet 5 mg PO QHS RF: 0 jwghbauf-jrh-NQ-lycopen-lutein 1 EACH tablet 1 ea PO DAILY RF: 0 omega-3 fatty acids 300 MG capsule 300 mg PO DAILY RF: 0 aspirin 81 mg tablet,delayed release (DR/EC) 81 mg PO BID RF: 0 Primary Care Provider: Guevara Reyes Referrals: Guevara Reyes MD [Primary Care Provider] - Disposition [facility]
[2020-12-16 19:56] VITALS: PULSE 124; RESP 17; O2SAT 98
[2020-12-16] MEDS: Lactated Ringers 1,000 ML 999 ML IV (20:01)
[2020-12-16 20:08] LABS: Absolute Lymphocyte Count 3.15 X10^3/uL (0.83-4.51); Absolute Neutrophil Count 26.9 X10^3/uL (2.0-7.7); Basophil# 0.18 X10^3/uL; Basophil% 0.5 % (0-1); Eosinophil# 0.05 X10^3/uL; Eosinophils% 0.2 % (0-5); Hemoglobin 13.5 g/dL (12.0-15.0); Lymphocyte # 3.15 X10^3/ul (0.83-4.51); Lymphocyte % 9.5 % (19-41); Mean Corp Hgb Conc 30.7 g/dL (32-36); Mean Corpuscular Hgb 27.2 pg (27.0-32.0); Mean Corpuscular Volume 88.7 fL (81-99); Mean Platelet Vol. 11.4 fl (6.2-12.0); Monocyte# 1.86 X10^3/uL; Monocyte% 5.6 % (0-10); NRBC Flagged by Analyzer 0.1 % (0-5); Neutrophil % 81.5 % (47-70); POSITIVE COUNT YES; POSITIVE DIFFERENTIAL YES; Platelet Count 387 K/mm3 (150-450); RBC Distribution Width CV 14.7 % (11.6-14.6); RBC Distribution Width SD 47.2 fl (35.1-43.9); Red Blood Count 4.96 M/mm3 (4.2-5.4)
[2020-12-16 20:10] LABS: Differential Indicated SCAN CRITERIA MET
[2020-12-16 20:27] LABS: Anion Gap 3 (5-15); BUN 54 mg/dL (7-18); BUN/Creat Ratio 40.3 RATIO (10-20); Calcium,Total 10.2 mg/dL (8.5-10.1); Chloride 116 mmol/L (98-107); Creatinine, Serum 1.34 mg/dL (0.55-1.02); EST Glomerular Filtration Rate 41 mL/min (>60); Est Glom Filt Rate - Afr Amer 49 mL/min (>60); Estimated Creatinine Clearance 30.63 ml/min; Glucose 237 mg/dL (74-106); Potassium 5.2 mmol/L (3.5-5.1); Sodium Level 147 mmol/L (136-145)
--- NOTE | 2020-12-16 20:36 | ED.RN ---
Verified with [facility], son Antelmo is HCPOA. Antelmo was called and updated on pts condition. He wants comfort care and hospice involved. Hospice nurse was called and awaiting their call back.
[2020-12-16 20:37] VITALS: BP 108/74; PULSE 116; RESP 20; O2SAT 92
[2020-12-16 20:40] LABS: Differential Comment SCANNED
--- NOTE | 2020-12-16 21:31 | NURSING ---
ACTUARIAL ASSOCIATE HERE
[2020-12-16 21:48] VITALS: BP 107/63; PULSE 119; RESP 12; O2SAT 95
[2020-12-16 23:37] VITALS: BP 112/63; PULSE 109; RESP 21; O2SAT 95
[2020-12-17 12:41] LABS: Pathologist Review Reviewed
== END 2020-12-16 23:48 | disposition skilled nursing facility (03) ==
PROVIDERS: Emergency Provider Emergency Medicine; PCP Family Medicine
DX: R62.7 Adult failure to thrive (principal); E86.0 Dehydration; N82.4 Other female intestinal-genital tract fistulae; I48.91 Unspecified atrial fibrillation; E11.9 Type 2 diabetes mellitus without complications; I10 Essential (primary) hypertension; E78.5 Hyperlipidemia, unspecified; E03.9 Hypothyroidism, unspecified; K21.9 Gastro-esophageal reflux disease without esophagitis; Z79.01 Long term (current) use of anticoagulants; Z79.84 Long term (current) use of oral hypoglycemic drugs; Z79.82 Long term (current) use of aspirin; Z79.890 Hormone replacement therapy; Z79.899 Other long term (current) drug therapy
CPT/HCPCS: 36415; 51702; 74176; 80048; 82040; 84134; 85025; 86850; 86900; 86901; 87426; 96360; 96361; 99285; A4216

== ENCOUNTER → 2020-12-17 05:10 | Outpatient (REF) | payer MEDICARE, SELFPAY ==
[2020-12-17 09:48] LABS: Hematocrit 39.6 % (37-47); Hemoglobin 11.9 g/dL (12.0-15.0); Mean Corp Hgb Conc 30.1 g/dL (32-36); Mean Corpuscular Hgb 26.6 pg (27.0-32.0); Mean Corpuscular Volume 88.6 fL (81-99); Mean Platelet Vol. 11.9 fl (6.2-12.0); POSITIVE COUNT YES; Platelet Count 319 K/mm3 (150-450); RBC Distribution Width SD 48.8 fl (35.1-43.9); Red Blood Count 4.47 M/mm3 (4.2-5.4); White Blood Count 30.4 K/mm3 (4.4-11.0)
[2020-12-17 09:49] LABS: Scan Indicated on CBC? Y/N YES- FLAGS NOTED
[2020-12-17 10:05] LABS: Anion Gap 6 (5-15); BUN 55 mg/dL (7-18); Calcium,Total 9.3 mg/dL (8.5-10.1); Chloride 119 mmol/L (98-107); Creatinine, Serum 1.17 mg/dL (0.55-1.02); EST Glomerular Filtration Rate 47 mL/min (>60); Est Glom Filt Rate - Afr Amer 57 mL/min (>60); Glucose 224 mg/dL (74-106); Potassium 4.2 mmol/L (3.5-5.1); Sodium Level 150 mmol/L (136-145)
[2020-12-18 05:35] LABS: Thyroid Stim Hormone (TSH) 1.12 uIU/mL (0.358-3.74)
[2020-12-18 13:22] LABS: Pathologist Review Reviewed
== END ==
LOC: OLS.SW300 05:10
PROVIDERS: PCP Family Medicine; Visit Provider Family Medicine
DX: N93.9 Abnormal uterine and vaginal bleeding, unspecified (principal); E03.9 Hypothyroidism, unspecified
CPT/HCPCS: 36415; 80048; 84443; 85027